=== PATIENT | male | born 1960 | race Caucasian/White ===

== ENCOUNTER 2020-06-09 09:19 | Inpatient (IN) ==
[2020-06-09] MEDS ORDERED: KETOROLAC TROMETHAMINE 15 MG/ML VIAL IV ONE (09:35)
[2020-06-09] MEDS ORDERED: SODIUM CHLORIDE 0.9% 1000ML 2,000 ML IV ONE (09:35)
--- NOTE | 2020-06-09 09:39 | Emergency Department Note ---
Impression & Plan MALIKA (acute kidney injury), Hypokalemia, Right ureteral calculus, Hydronephrosis, right ED Provider Note NAME: CHI CERVANTES AGE: 60 SEX: M : 1960 ARRIVES VIA: Walk-In INFORMANT: Patient ED PROVIDER(S): Heron Cadet DO CHIEF COMPLAINT: right flank pain HPI: Patient is a 60-year-old male with a known 4 mm right proximal ureteral stone that presents to the ER for right flank pain and right belly pain. Symptoms started about a week ago. Pain is sharp and stabbing. Currently a 5 out of 10. Does not want anything for pain. He admits to some nausea but no vomiting. He has been to [facility] 3 times for this. He is frustrated as he cannot get in with urology. He has had 1 previous stone before in the past that was about 5 years ago. Denies any dysuria urgency or frequency. No fevers. No other exacerbating or remitting factors. He just had a CT abdomen pelvis performed yesterday. ROS: See above HPI for pertinent positives & negatives. A total of 10 systems reviewed and were otherwise negative. PAST MEDICAL HISTORY:See Below PAST SURGICAL HISTORY:See Below FAMILY HISTORY:See Below SOCIAL HISTORY:See Below HOME MEDICATIONS:See Below ALLERGIES:See Below VITALS:See Below PHYSICAL EXAMINATION: GENERAL: Sitting up in bed, alert, well appearing, well nourished, no distress, non-toxic EYE EXAM: normal conjunctiva. OROPHARYNX: no exudate, no erythema, lips, buccal mucosa, and tongue normal and mucous membranes are moist NECK: supple, no nuchal rigidity, no adenopathy, non-tender LUNGS: Clear to auscultation. Normal chest wall mechanics HEART: no murmurs, S1 normal and S2 normal ABDOMEN: abdomen soft, mild tenderness in right lower quadrant, normo-active bowel sounds, no masses, no rebound or guarding. UPPER EXTREMITIES: upper extremities are grossly normal. LOWER EXTREMITIES: No pitting edema. NEURO EXAM: Normal sensorium, cranial nerves II-XII grossly intact, normal speech, no gross weakness of arms, no gross weakness of legs. MEDICAL DECISION MAKING: Patient is a 60-year-old male who presents the ER for right flank pain. He has been seen in the ER 3 times prior to this presentation at outside facility. CT yesterday showed a 4 mm stone with a moderate to severe amount of hydro-. There are some fluid going down to the pelvis at that time. IV was established blood work was obtained. Labs show no significant leukocytosis or anemia. BMP with mild hypokalemia. LFTs bilirubin was unremarkable. Lipase was normal. UA was clean. Ultrasound shows a mild amount of hydro-. Patient was given IV fluids. He was given IV Toradol. He was updated bedside. Discussed with urology who recommended admission and discussed with the hospitalist. Patient was Covid positive. Triage Nursing notes reviewed. Limited review of prior medical records performed Vital Signs: reviewed and remarkable for HTN Differential diagnosis: Differential diagnoses includes but is not limited to gastritis, peptic ulcer disease, GERD, gallbladder disease, pancreatitis, small bowel obstruction, acute coronary syndrome, pericarditis, ischemic bowel, irritable bowel disease, irritable bowel syndrome, appendicitis, diverticulitis, malignancy, hernia, urinary tract infection, torsion, [/ectopic (if female)], perforation, trauma, infectious. ER treatment provided: See below Diagnostics interpreted by me: ECG: none Cardiac Monitoring: An order was placed for continuous cardiac monitoring. The monitor shows a rate of 76 with sinus rhythm. Laboratory studies: As stated above and show below. Imaging studies: Ultrasound shows no stone. KUB shows 3 mm stone likely. Consultation(s): Discussed with urology and hospitalist for admission Procedures: none Critical Care: None Past Med/Surg History Medical History (Updated 06/09/20 @ 17:05 by Heron Cadet DO) DM type 2 (diabetes mellitus, type 2) MAURA (generalized anxiety disorder) HLD (hyperlipidemia) HTN (hypertension) VALENTINO on CPAP Surgical History History of lithotripsy Family History Brother Hypertension Mother Hypertension Social History Smoking Status: Never smoker Hx Alcohol Use: Yes Alcohol type: beer Hx Substance Use: No Preferred Language: Ivorian Communication Ability: Effective Cement Loader Required: No Beliefs That Will Affect Care: None Current Living Situation: Spouse Other Information That Helps Us Care for You: No Feels Safe at Home: Yes Safety Concerns: Feels Safe At This Time Assistive Devices: CPAP Allergies Allergies Allergy/AdvReac Type Severity Reaction Status Date / Time guaifenesin [From Mucinex] Allergy Intermediate Hives Unverified 06/09/20 10:05 Home Meds Home Medications Medication Instructions Recorded Confirmed atorvastatin 40 mg PO DAILY 06/09/20 06/09/20 citalopram 10 mg PO DAILY 06/09/20 06/09/20 hydrochlorothiazide 12.5 mg PO DAILY 06/09/20 06/09/20 metformin 1,000 mg PO BIDM 06/09/20 06/09/20 olmesartan [Benicar] 40 mg PO DAILY 06/09/20 06/09/20 oxycodone-acetaminophen [Percocet] 1 tab PO Q6H PRN 06/09/20 06/09/20 tamsulosin [Flomax] 0.4 mg PO DAILY 06/09/20 06/09/20 Results & Data (ED) Vital Signs Vital Signs - 24 hr 06/09/20 09:23 06/09/20 10:03 06/09/20 10:08 Temperature 36.5 C Temperature Source Temporal Artery Scan Pulse Rate 76 57 L Pulse Rate from SpO2 Sensor 58 L Respiratory Rate 18 Respiratory Effort / Characteristics Non-Labored Spontaneous Respiratory Depth Normal Blood Pressure 161/87 H 149/74 H Blood Pressure [Left Arm] Blood Pressure Mean 111 99 Blood Pressure Mean [Left Arm] Blood Pressure Position Sitting Blood Pressure Position [Left Arm] Pulse Oximetry 96 94 Oxygen Delivery Method Room Air Room Air Sepsis Recent Fever Within 48 Hours No Sepsis New/Unexplained Change in Mental Status No Sepsis Action Taken by Nursing No Action Required 06/09/20 10:14 06/09/20 10:20 06/09/20 10:30 Temperature Temperature Source Pulse Rate 60 55 L Pulse Rate from SpO2 Sensor 59 L 55 L Respiratory Rate 21 Respiratory Effort / Characteristics Non-Labored Respiratory Depth Normal Blood Pressure 140/72 Blood Pressure [Left Arm] 149/74 H Blood Pressure Mean 94 Blood Pressure Mean [Left Arm] 99 Blood Pressure Position Blood Pressure Position [Left Arm] Sitting Pulse Oximetry 96 94 94 Oxygen Delivery Method Room Air Sepsis Recent Fever Within 48 Hours Sepsis New/Unexplained Change in Mental Status Sepsis Action Taken by Nursing 06/09/20 10:31 06/09/20 11:00 06/09/20 11:01 Temperature Temperature Source Pulse Rate 53 L 55 L 62 Pulse Rate from SpO2 Sensor 53 L 55 L 61 Respiratory Rate Respiratory Effort / Characteristics Respiratory Depth Blood Pressure 136/72 Blood Pressure [Left Arm] Blood Pressure Mean 93 Blood Pressure Mean [Left Arm] Blood Pressure Position Blood Pressure Position [Left Arm] Pulse Oximetry 94 94 94 Oxygen Delivery Method Sepsis Recent Fever Within 48 Hours Sepsis New/Unexplained Change in Mental Status Sepsis Action Taken by Nursing 06/09/20 11:30 06/09/20 11:31 06/09/20 12:00 Temperature Temperature Source Pulse Rate 56 L 56 L 52 L Pulse Rate from SpO2 Sensor 57 L 55 L 53 L Respiratory Rate Respiratory Effort / Characteristics Respiratory Depth Blood Pressure 139/73 141/72 H Blood Pressure [Left Arm] Blood Pressure Mean 95 95 Blood Pressure Mean [Left Arm] Blood Pressure Position Blood Pressure Position [Left Arm] Pulse Oximetry 95 95 94 Oxygen Delivery Method Sepsis Recent Fever Within 48 Hours Sepsis New/Unexplained Change in Mental Status Sepsis Action Taken by Nursing 06/09/20 12:01 06/09/20 12:55 06/09/20 13:00 Temperature Temperature Source Pulse Rate 54 L Pulse Rate from SpO2 Sensor 54 L 64 56 L Respiratory Rate Respiratory Effort / Characteristics Respiratory Depth Blood Pressure 149/72 H 150/80 H Blood Pressure [Left Arm] Blood Pressure Mean 97 103 Blood Pressure Mean [Left Arm] Blood Pressure Position Blood Pressure Position [Left Arm] Pulse Oximetry 94 95 96 Oxygen Delivery Method Room Air Room Air Sepsis Recent Fever Within 48 Hours Sepsis New/Unexplained Change in Mental Status Sepsis Action Taken by Nursing Laboratory Data Result diagrams: 06/09/20 10:03 06/09/20 10:03 Lab Results 06/09/20 06/09/20 06/09/20 Range/Units 10:02 10:03 10:03 WBC 8.99 (4.8-10.8) K/uL RBC 4.14 L (4.7-6.1) M/uL Hgb 12.6 L (14.0-18.0) g/dL Hct 37.0 L (42-52) % MCV 89.4 (80-100) fL MCH 30.4 (25-34) pg MCHC 34.1 (32-36) g/dL RDW Std Deviation 46.2 (36.4-46.3) fL RDW Coeff of Christel 14.2 (11.5-14.5) % Plt Count 200 (130-400) K/uL MPV 11.1 H (7.4-10.4) fL Immature Gran % (Auto) 2.1 % Neut % (Auto) 80.9 % Lymph % (Auto) 8.5 % [place] % (Auto) 7.9 % Eos % (Auto) 0.4 % Baso % (Auto) 0.2 % Neut # (Auto) 7.27 H (1.4-6.5) K/uL Lymph # (Auto) 0.76 L (1.2-3.4) K/uL [place] # (Auto) 0.71 H (0.11-0.59) K/uL Eos # (Auto) 0.04 (0-0.5) K/uL Baso # (Auto) 0.02 (0-0.2) K/uL Immature Gran # (Auto) 0.19 H (0.00-0.02) K/uL PT 11.1 (9.0-12.0) Seconds INR 1.1 (0.9-1.1) Sodium (136-145) mmol/L Potassium (3.5-5.1) mmol/L Chloride (98-107) mmol/L Carbon Dioxide (21-32) mmol/L Anion Gap (3-11) BUN (7-18) mg/dl Creatinine (0.6-1.4) mg/dl Est Cr Clr Drug Dosing ml/min Est GFR ( Amer) Est GFR (Non-Af Amer) BUN/Creatinine Ratio (10-20) Glucose (70-99) mg/dl Calcium (8.5-10.1) mg/dl Magnesium 2.1 (1.8-2.4) mg/dl Total Bilirubin (0.2-1) mg/dl AST (15-37) U/L ALT (12-78) U/L Alkaline Phosphatase (45-117) U/L Total Protein (6.4-8.2) gm/dl Albumin (3.4-5.0) gm/dl Globulin (2.5-4.0) gm/dl Albumin/Globulin Ratio (0.9-2) Lipase (73-393) U/L Urine Color Urine Appearance (Clear) Urine pH (4.5-7.5) Ur Specific [place] (1.000-1.030) Urine Protein (Negative) Urine Glucose (UA) (Negative) Urine Ketones (Negative) Urine Blood (Negative) Urine Nitrite (Negative) Urine Bilirubin (Negative) Urine Urobilinogen (Negative) Ur Leukocyte Esterase (Negative) Urine WBC (Auto) (0-5) /hpf Urine RBC (Auto) (0-4) /hpf U Hyaline Cast (Auto) (0-5) /lpf U Epithel Cells (Auto) (0-5) /lpf Urine Bacteria (Auto) (Negative) COVID-19 Eval Order SARS-CoV-2 (PCR) (Negative) Influenza Type A (PCR) (Neg) Influenza Type B (PCR) (Neg) RSV (RT-PCR) (Neg) 06/09/20 06/09/20 06/09/20 Range/Units 10:03 10:03 12:45 WBC (4.8-10.8) K/uL RBC (4.7-6.1) M/uL Hgb (14.0-18.0) g/dL Hct (42-52) % MCV (80-100) fL MCH (25-34) pg MCHC (32-36) g/dL RDW Std Deviation (36.4-46.3) fL RDW Coeff of Christel (11.5-14.5) % Plt Count (130-400) K/uL MPV (7.4-10.4) fL Immature Gran % (Auto) % Neut % (Auto) % Lymph % (Auto) % [place] % (Auto) % Eos % (Auto) % Baso % (Auto) % Neut # (Auto) (1.4-6.5) K/uL Lymph # (Auto) (1.2-3.4) K/uL [place] # (Auto) (0.11-0.59) K/uL Eos # (Auto) (0-0.5) K/uL Baso # (Auto) (0-0.2) K/uL Immature Gran # (Auto) (0.00-0.02) K/uL PT (9.0-12.0) Seconds INR (0.9-1.1) Sodium 142 (136-145) mmol/L Potassium 3.2 L (3.5-5.1) mmol/L Chloride 109 H (98-107) mmol/L Carbon Dioxide 27 (21-32) mmol/L Anion Gap 7.0 (3-11) BUN 15 (7-18) mg/dl Creatinine 1.52 H (0.6-1.4) mg/dl Est Cr Clr Drug Dosing 64.8 ml/min Est GFR ( Amer) 56.9 Est GFR (Non-Af Amer) 49.1 BUN/Creatinine Ratio 9.9 L (10-20) Glucose 142 H (70-99) mg/dl Calcium 8.3 L (8.5-10.1) mg/dl Magnesium (1.8-2.4) mg/dl Total Bilirubin 1.0 (0.2-1) mg/dl AST 10 L (15-37) U/L ALT 24 (12-78) U/L Alkaline Phosphatase 86 (45-117) U/L Total Protein 6.9 (6.4-8.2) gm/dl Albumin 2.9 L (3.4-5.0) gm/dl Globulin 4.0 (2.5-4.0) gm/dl Albumin/Globulin Ratio 0.7 L (0.9-2) Lipase 57 L (73-393) U/L Urine Color Dark Yellow Urine Appearance Clear (Clear) Urine pH 6.0 (4.5-7.5) Ur Specific [place] 1.038 H (1.000-1.030) Urine Protein 1+ H (Negative) Urine Glucose (UA) Negative (Negative) Urine Ketones Trace H (Negative) Urine Blood Negative (Negative) Urine Nitrite Negative (Negative) Urine Bilirubin Negative (Negative) Urine Urobilinogen Positive H (Negative) Ur Leukocyte Esterase Negative (Negative) Urine WBC (Auto) 1-5 (0-5) /hpf Urine RBC (Auto) 0-4 (0-4) /hpf U Hyaline Cast (Auto) 1-5 (0-5) /lpf U Epithel Cells (Auto) 5-10 H (0-5) /lpf Urine Bacteria (Auto) Negative (Negative) COVID-19 Eval Order [facility]FluRsv at [facility] SARS-CoV-2 (PCR) (Negative) Influenza Type A (PCR) (Neg) Influenza Type B (PCR) (Neg) RSV (RT-PCR) (Neg) 06/09/20 Range/Units 12:45 WBC (4.8-10.8) K/uL RBC (4.7-6.1) M/uL Hgb (14.0-18.0) g/dL Hct (42-52) % MCV (80-100) fL MCH (25-34) pg MCHC (32-36) g/dL RDW Std Deviation (36.4-46.3) fL RDW Coeff of Christel (11.5-14.5) % Plt Count (130-400) K/uL MPV (7.4-10.4) fL Immature Gran % (Auto) % Neut % (Auto) % Lymph % (Auto) % [place] % (Auto) % Eos % (Auto) % Baso % (Auto) % Neut # (Auto) (1.4-6.5) K/uL Lymph # (Auto) (1.2-3.4) K/uL [place] # (Auto) (0.11-0.59) K/uL Eos # (Auto) (0-0.5) K/uL Baso # (Auto) (0-0.2) K/uL Immature Gran # (Auto) (0.00-0.02) K/uL PT (9.0-12.0) Seconds INR (0.9-1.1) Sodium (136-145) mmol/L Potassium (3.5-5.1) mmol/L Chloride (98-107) mmol/L Carbon Dioxide (21-32) mmol/L Anion Gap (3-11) BUN (7-18) mg/dl Creatinine (0.6-1.4) mg/dl Est Cr Clr Drug Dosing ml/min Est GFR ( Amer) Est GFR (Non-Af Amer) BUN/Creatinine Ratio (10-20) Glucose (70-99) mg/dl Calcium (8.5-10.1) mg/dl Magnesium (1.8-2.4) mg/dl Total Bilirubin (0.2-1) mg/dl AST (15-37) U/L ALT (12-78) U/L Alkaline Phosphatase (45-117) U/L Total Protein (6.4-8.2) gm/dl Albumin (3.4-5.0) gm/dl Globulin (2.5-4.0) gm/dl Albumin/Globulin Ratio (0.9-2) Lipase (73-393) U/L Urine Color Urine Appearance (Clear) Urine pH (4.5-7.5) Ur Specific [place] (1.000-1.030) Urine Protein (Negative) Urine Glucose (UA) (Negative) Urine Ketones (Negative) Urine Blood (Negative) Urine Nitrite (Negative) Urine Bilirubin (Negative) Urine Urobilinogen (Negative) Ur Leukocyte Esterase (Negative) Urine WBC (Auto) (0-5) /hpf Urine RBC (Auto) (0-4) /hpf U Hyaline Cast (Auto) (0-5) /lpf U Epithel Cells (Auto) (0-5) /lpf Urine Bacteria (Auto) (Negative) COVID-19 Eval Order SARS-CoV-2 (PCR) POSITIVE A* (Negative) Influenza Type A (PCR) Negative (Neg) Influenza Type B (PCR) Negative (Neg) RSV (RT-PCR) Negative (Neg) Administered Medications Ceftriaxone Sodium 2,000 mg/ (Dextrose) 70 mls @ 140 mls/hr IV Q24H [facility]; Protocol Stop: 06/19/20 15:59 Last Admin: 06/09/20 16:28 Dose: 140 mls/hr Documented by: [id number] Discontinued Medications Sodium Chloride (Nss 1000ml) 2,000 mls @ 999 mls/hr IV .Q2H1M ONE Stop: 06/09/20 11:35 Last Infusion: 06/09/20 12:10 Dose: 0 mls/hr Documented by: [id number] Admin: 06/09/20 10:03 Dose: 999 mls/hr Documented by: [id number] Ketorolac Tromethamine (Ketorolac Tromethamine 15 Mg/Ml Vial) 15 mg IV NOW ONE Stop: 06/09/20 09:36 Last Admin: 06/09/20 10:03 Dose: 15 mg Documented by: [id number] Discharge Plan Visit Data Chief Complaint: Kidney Stone Stated Complaint: KIDNEY STONE, RIGHT SIDE ED Provider: Heron Cadet Discharge Problem: MALIKA (acute kidney injury), Hypokalemia, Right ureteral calculus, Hydronephrosis, right Patient Disposition: Admitted As Inpatient Discharge Instructions Interventions: ED Discharge Assessment Last Done: 06/09/20 14:40
[2020-06-09 10:26] LABS: Basophils # (auto) 0.02 K/uL (0-0.2); Basophils % (auto) 0.2 %; Eosinophils # (auto) 0.04 K/uL (0-0.5); Eosinophils % (auto) 0.4 %; Hemoglobin 12.6 g/dL (14.0-18.0); Immature Granulocytes # (auto) 0.19 K/uL (0.00-0.02); Immature Granulocytes % (auto) 2.1 %; Lymphocytes # (auto) 0.76 K/uL (1.2-3.4); Lymphocytes % (auto) 8.5 %; Mean Corpuscular Hemoglobin 30.4 pg (25-34); Mean Corpuscular Hgb Conc 34.1 g/dL (32-36); Mean Corpuscular Volume 89.4 fL (80-100); Mean Platelet Volume 11.1 fL (7.4-10.4); Monocytes # (auto) 0.71 K/uL (0.11-0.59); Monocytes % (auto) 7.9 %; Neutrophils # (auto) 7.27 K/uL (1.4-6.5); Neutrophils % (auto) 80.9 %; Platelet Count 200 K/uL (130-400); RDW Coefficient of Variation 14.2 % (11.5-14.5); RDW Standard Deviation 46.2 fL (36.4-46.3); Red Blood Count 4.14 M/uL (4.7-6.1); White Blood Count 8.99 K/uL (4.8-10.8)
[2020-06-09 10:45] LABS: Albumin Level 2.9 gm/dl (3.4-5.0); BUN Creatinine Ratio 9.9 (10-20); Calcium 8.3 mg/dl (8.5-10.1); Creatinine Clr Calc Pharmacy 64.8 ml/min; Est GFR (African American) 56.9; Est GFR (Non-African American) 49.1; INR 1.1 (0.9-1.1); Potassium 3.2 mmol/L (3.5-5.1); Prothrombin Time 11.1 Seconds (9.0-12.0)
[2020-06-09 10:46] LABS: Appearance Urine Clear (Clear); Bacteria Urine Automated Negative (Negative); Bilirubin Urine Negative (Negative); Blood Urine Negative (Negative); Color Urine Dark Yellow; Glucose Urine UA Negative (Negative); Ketones Urine Trace (Negative); Leukocyte Esterase Urine Negative (Negative); Nitrite Urine Negative (Negative); Protein Urine 1+ (Negative); RBC Urine Automated 0-4 /hpf (0-4); Specific Gravity Urine 1.038 (1.000-1.030); Urobilinogen Urine Positive (Negative)
[2020-06-09 10:48] LABS: Albumin Globulin Ratio 0.7 (0.9-2); Total Protein 6.9 gm/dl (6.4-8.2)
--- NOTE | 2020-06-09 11:56 | Ultrasound Report ---
RENAL ULTRASOUND CLINICAL HISTORY: Right flank pain. COMPARISON STUDY: None. TECHNIQUE: Sonography of the kidneys and the urinary bladder was performed. FINDINGS: Right kidney measures 12.8 x 6.3 x 6.5 cm and the left measures 12.9 x 6.4 x 6.1 cm. There is mild right hydronephrosis. There is no left hydronephrosis. No ureteral calculi are identified alt april these may be occult by sonography. Several echogenic foci within the right renal sinus measurin g up to 4 mm. These favor renal calculi. Note is made of a 2.4 cm parapelvic cyst superior aspect of the right renal sinus. There is an equivocal 2.4 cm lesion within the cortex of the midpole the left kidney. This is likely artifactual. Left ureteral jet was visualized. A faint right ureteral jet was noted. IMPRESSION: 1. Mild right hydronephrosis. No ureteral calculi identified although these are often occult by sonog clement. Faint right ureteral jet. Normal left ureteral jet. Right-sided nephrolithiasis. 2. Equivocal 2.4 cm left renal lesion. This likely reflects normal renal parenchyma. A renal lesion c ould appear similar although is considered less likely. Comparison with prior outside imaging studies , if available, is recommended. In the absence of prior exams, a nonemergent renal protocol CT is rec ommended as an outpatient. ACT 112: Positive. There are findings on this exam that require communication between the performing entity and the patient following Patient Test Result Information Act ([place] Act 112) guidelines. Electronically signed by: Kvng Padilla M.D. 06/09/2020 11:55 AM
--- NOTE | 2020-06-09 12:58 | XRay Report ---
XR chest 1V portable HISTORY: Respiratory distress. COMPARISON: None. FINDINGS: The cardiac silhouette is mildly enlarged. No pneumothorax. No pleural effusions. Diffuse i nterstitial thickening with hazy airspace opacities within the mid to lower lung zones. This could re present pulmonary edema or an atypical pneumonitis. IMPRESSION: Cardiomegaly with interstitial thickening and hazy airspace opacities within the mid to lower lung zo nasir. This could represent pulmonary edema or an atypical pneumonitis. ACT 112: Negative or not required by law. Electronically signed by: Madhu Dominique M.D. 06/09/2020 12:57 PM
--- NOTE | 2020-06-09 13:03 | XRay Report ---
KUB HISTORY: Follow up study in a patient with history of renal calculi stone on right COMPARISON: Renal ultrasound of same day FINDINGS: Nonobstructive bowel gas pattern. Renal shadows are obscured by bowel gas. Numerous pelvic basin calcifications are present suggestive of probable phleboliths. No renal calculi identified. Th ere is a 3 mm indeterminate radiodensity within the right abdomen level of the L4-L5 disc space. No p neumoperitoneum or pneumatosis. No fracture. IMPRESSION: 1. Indeterminate 3 mm radiodensity along the right lateral margin of the L4-L5 disc space, possibly r epresentative of a ureteral calculus. 2. No renal calculi identified. ACT 112: Negative or not required by law. The above report was generated using voice recognition software. It may contain grammatical, syntax o r spelling errors. Electronically signed by: Magdi Salcedo M.D. 06/09/2020 1:01 PM
--- NOTE | 2020-06-09 13:38 | History & Physical Report ---
Date of Service June 09, 2020 Assessment & Plan (1) Renal calculi: -Admit to [facility] -Patient presenting from home with reports of ongoing right flank and right lower quadrant pain. This is patient's fourth ED visit since 06/03 for these complaints. Please refer to HPI for summary of imaging completed. -Was diagnosed with 4 mm right ureteral stone with associated hydronephrosis on 06/03 at [facility] via CT scan -Renal ultrasound today shows ongoing mild right hydronephrosis -UA does not suggest UTI, patient is afebrile, no leukocytosis. CT ABD/pelvis yesterday could not exclude a superimposed underlying infectious process, therefore will start empiric IV ceftriaxone -IVF, pain control, continue tamsulosin that was previously started earlier in the course -Follow urine and blood cultures -Urology consult, case discussed with GERALD Mcginnis (2) MALIKA (acute kidney injury): -Creatinine 1.5 (up from baseline of 0.8) -Likely prerenal in nature due to acute illness -IVF, follow renal functions, hold olmesartan and HCTZ (3) Hypokalemia: -K+ 3.2 -Replace, follow electrolytes (4) COVID-19: -Tested positive for COVID-19 on 05/29 -Received monoclonal antibody bamlanivimab on 06/03 -Doing well, no oxygen requirement. No further treatment indicated at this time (5) Renal lesion: - Equivocal 2.4 cm left renal lesion noted on renal US today, will need nonemergent renal protocol CT as an outpatient (6) VALENTINO on CPAP: -Continue CPAP as per home settings (7) DM type 2 (diabetes mellitus, type 2): -Hgb A1c 6.2 04/2020 -Hold oral agents and utilize NovoLog per protocol while hospitalized (8) HTN (hypertension): -BP controlled, holding olmesartan and HCTZ in the setting of MALIKA (9) DVT prophylaxis: -SCDs due to possible invasive procedure History of Present Illness Chief Complaint: Right flank and right lower quadrant pain Primary Care Provider: Zeinab Leavitt MD 60-year-old male with PMH DM type II, VALENTINO on CPAP, HTN, and other problems listed below who presents to the ED for evaluation of right flank and right lower quadrant pain. Of note, patient tested positive for COVID-19 on 05/29. He received monoclonal antibody, bamlanivimab, on 06/03. He reports he has been doing well from a COVID-19 symptom standpoint. He states that he had nausea, poor appetite, diarrhea, fatigue that are all resolving. Still has a mild lingering cough. Denies shortness of breath. On 06/03, patient reports he developed right flank pain that was similar to prior kidney stones in the past. He was seen at [facility] ED and had CT scan showing (24 mm exophytic cyst noted off the midpole left kidney. A 4 mm stone is noted at the proximal 3rd of the right ureter with hydroureteronephrosis proximal to the stone. There are multiple nonobstructive subcentimeter stones in the right kidney). He continued to have right flank and right lower quadrant pain and presented to the ED again on 06/05. He then had a renal ultrasound showing (no echogenic obstructive renal calculi, hydronephrosis or perinephric fluid bilaterally. A 6 mm nonobstructing calculus is present within the inferior pole of the right kidney. A small 2 cm cyst is present within the left kidney.) Again due to ongoing symptoms, patient was seen in the ED yesterday and had repeat CT scan showing (1. 4 mm right proximal ureteral stone is not significantly changed in position. Moderate-severe hydronephrosis has increased with marked perinephric fat stranding and non-organized fluid/edema extending caudally in the retroperitoneal space to the pelvis. Associated urothelial enhancement in the right proximal ureter/renal collecting system. Superimposed infectious process is not excluded.). Urology was contacted when patient was in the ED at [facility] and they recommended discharge with outpatient follow-up. Next available appointment was on 06/23. Patient was given Percocet to take at home. He reports that it does improve his pain however he is frustrated with ongoing symptoms. He then presented to [facility] ED today for further evaluation. Patient reports having a fever of 103 closer to the time of his diagnosis of COVID-19. Reports temperature of 99 today. Appetite is improving, denies nausea, vomiting, diarrhea. No chest pain. Denies lightheadedness, dizziness, diaphoresis, syncopal events. Urinating without difficulty, denies hematuria and dysuria. In the ED today, renal ultrasound shows mild hydronephrosis. Labs show creatinine 1.5 (up from baseline of 0.8). UA does not suggest UTI, patient is afebrile without leukocytosis. He was given IVF and IV ketorolac. Allergies Allergy/AdvReac Type Severity Reaction Status Date / Time guaifenesin [From Mucinex] Allergy Intermediate Hives Unverified 06/09/20 10:05 Home Medications Medication Instructions Recorded Confirmed Type atorvastatin 40 mg PO DAILY 06/09/20 06/09/20 History citalopram 10 mg PO DAILY 06/09/20 06/09/20 History hydrochlorothiazide 12.5 mg PO DAILY 06/09/20 06/09/20 History metformin 1,000 mg PO BIDM 06/09/20 06/09/20 History olmesartan [Benicar] 40 mg PO DAILY 06/09/20 06/09/20 History oxycodone-acetaminophen [Percocet] 1 tab PO Q6H PRN 06/09/20 06/09/20 History tamsulosin [Flomax] 0.4 mg PO DAILY 06/09/20 06/09/20 History Past Med/Surg History Medical History (Updated 06/09/20 @ 17:05 by Heron Cadet DO) DM type 2 (diabetes mellitus, type 2) MAURA (generalized anxiety disorder) HLD (hyperlipidemia) HTN (hypertension) VALENTINO on CPAP Surgical History History of lithotripsy Family History Brother Hypertension Mother Hypertension Social History Smoking Status: Never smoker Hx Alcohol Use: Yes Alcohol type: beer Hx Substance Use: No Preferred Language: Gambian Communication Ability: Effective Principal Statistical Scientist Required: No Beliefs That Will Affect Care: None Current Living Situation: Spouse Other Information That Helps Us Care for You: No Feels Safe at Home: Yes Safety Concerns: Feels Safe At This Time Assistive Devices: CPAP Review of Systems Review of Systems: ROS per HPI, all other systems reviewed and negative Physical Exam Constitutional: WD/WN, vitals as above + obese Eyes: PERRL, conjunctivae normal, anicteric sclerae ENMT: external ear and nose normal, oropharynx normal Respiratory: normal respiratory effort; no respiratory distress Auscultation: + diminished lung sounds Cardiovascular: Rate/Rhythm: regular rate and regular rhythm Vessels: normal peripheral pulses Extremities: no edema Gastrointestinal (Abdomen): Inspection/Auscultation: normal bowel sounds Percussion/Palpation: + abdomen tender (RLQ) and abdomen soft; no hepatosplenomegaly Musculoskeletal: no cyanosis or clubbing, extremities motor strength 5/5 Skin: no rashes, warm and dry Neurologic: PERRL, EOMI, accommodation nl, no face palsy, no dysarthria Psychiatric: A+Ox3, euthymic affect Genitourinary: no CVA tenderness Results & Data Results & Data ([facility]) Vital Signs (Past 12 Hours) Vital Signs Temp Pulse Resp BP BP Pulse Ox 06/09/20 13:00 150/80 H 96 06/09/20 12:55 149/72 H 95 06/09/20 12:01 54 L 94 06/09/20 12:00 52 L 141/72 H 94 06/09/20 11:31 56 L 95 06/09/20 11:30 56 L 139/73 95 06/09/20 11:01 62 94 06/09/20 11:00 55 L 136/72 94 06/09/20 10:31 53 L 94 06/09/20 10:30 55 L 140/72 94 06/09/20 10:20 60 94 06/09/20 10:14 21 149/74 H 96 06/09/20 10:08 57 L 149/74 H 94 06/09/20 09:23 36.5 C 76 18 161/87 H 96 Laboratory Results Short CBC 06/09/20 Range/Units 10:03 WBC 8.99 (4.8-10.8) K/uL Hgb 12.6 L (14.0-18.0) g/dL Hct 37.0 L (42-52) % Plt Count 200 (130-400) K/uL BMP 06/09/20 10:03 Sodium 142 Potassium 3.2 L Chloride 109 H Carbon Dioxide 27 BUN 15 Creatinine 1.52 H Glucose 142 H Calcium 8.3 L Liver Function 06/09/20 Range/Units 10:03 Total Bilirubin 1.0 (0.2-1) mg/dl AST 10 L (15-37) U/L ALT 24 (12-78) U/L Alkaline Phosphatase 86 (45-117) U/L Albumin 2.9 L (3.4-5.0) gm/dl Urine 06/09/20 Range/Units 10:03 Urine Color Dark Yellow Urine Appearance Clear (Clear) Urine pH 6.0 (4.5-7.5) Ur Specific [place] 1.038 H (1.000-1.030) Urine Protein 1+ H (Negative) Urine Glucose (UA) Negative (Negative) Diagnostic Findings RENAL ULTRASOUND IMPRESSION: 1. Mild right hydronephrosis. No ureteral calculi identified although these are often occult by sonography. Faint right ureteral jet. Normal left ureteral jet. Right-sided nephrolithiasis. 2. Equivocal 2.4 cm left renal lesion. This likely reflects normal renal parenchyma. A renal lesion could appear similar although is considered less likely. Comparison with prior outside imaging studies, if available, is recommended. In the absence of prior exams, a nonemergent renal protocol CT is recommended as an outpatient. CXR IMPRESSION: Cardiomegaly with interstitial thickening and hazy airspace opacities within the mid to lower lung zones. This could represent pulmonary edema or an atypical pneumonitis. KUB XR IMPRESSION: 1. Indeterminate 3 mm radiodensity along the right lateral margin of the L4-L5 disc space, possibly career services representative of a ureteral calculus. 2. No renal calculi identified. Code Status & VTE Plan VTE Prophylaxis Plan VTE Prophylaxis will be ordered: Yes Supervising Physician Co-Signing Physician Notes Attending addendum: The patient was seen and examined in medical floor He was admitted with the aright ureteral calculus with associated hydronephrosis and MALIKA His pain seems to be controlled and denies any respiratory symptoms On examination No apparent distress at rest Remains hemodynamically stable and afebrile Chest-clear to auscultate bilaterally Heart-S1-S2, regular Abdomen-distended, soft, tender in the right renal angle, bowel sounds present Extremities-negative for any edema 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 No focal sensory and motor deficit appreciated Admission labs and imaging studies reviewed Has right ureteral calculus with right hydronephrosis and MALIKA Noted to have Covid 19+ but has been on isolation at home more than 10 days for positive COVID-19 infection Agree with assessment and plan as outlined above by Michelle Howard
[2020-06-09 14:01] LABS: Influenza A virus by PCR Negative (Neg); Influenza B virus by PCR Negative (Neg); RSV by PCR Negative (Neg)
[2020-06-09 14:19] LABS: SARS CoV2 RNA(COVID-19) InHosp POSITIVE (Negative)
--- NOTE | 2020-06-09 14:20 | Urology Consultation ---
Date of Consultation June 09, 2020 Assessment & Plan (1) Right ureteral calculus: (2) Hydronephrosis, right: (3) MALIKA (acute kidney injury): 60yo M admitted with intractable right flank pain and MALIKA secondary to a right ureteral calculus with associated hydronephrosis -Afebrile, VSS. -Labs reviewed - Wbc normal and creatinine up to 1.52. -Urinalysis not suggestive of infection -Renal ultrasound notable for mild right hydronephrosis and a 2.4 cm left renal lesion -KUB notes an indeterminate 3 mm radiodensity, possibly representing a right ureteral calculus. -Case discussed with Dr. Hurt -No acute intervention planned for today -Plan for trial of passage overnight -Will make NPO at midnight and plan to reassess in the AM for possible procedure -Strain all urine -Continue supportive care, flomax, and antibiotics per primary team -Recommend obtaining records and CT imaging from [facility] for further review -Will continue to follow -Please consult our service urgently if patient develops fever >101F, intractable pain or nausea, as this will necessitate urgent surgical intervention. History of Present Illness History of Present Illness The patient is a 60-year-old male with a PMHx including DM2, VALENTINO, and HTN who presented to [facility] ER today with c/o right flank and RLQ pain for one week. This is the patient's fourth ER visit since 06/03 for these complaints. He was evaluated at [facility] on 06/03 and was diagnosed with a 4mm right ureteral stone with hydronephrosis. Outside imaging results obtained through chart review: -On 06/03, patient reports he developed right flank pain that was similar to prior kidney stones in the past. He was seen at [facility] ED and had CT scan showing a 24 mm exophytic cyst noted off the midpole left kidney. A 4 mm stone is noted at the proximal 3rd of the right ureter with hydroureteronephrosis proximal to the stone. There are multiple nonobstructive subcentimeter stones in the right kidney. There are multiple nonobstructive subcentimeter stones in the right kidney. -He continued to have right flank and right lower quadrant pain and presented to the ED again on 06/05. He then had a renal ultrasound showing no echogenic obstructive renal calculi, hydronephrosis or perinephric fluid bilaterally. A 6 mm nonobstructing calculus is present within the inferior pole of the right kidney. A small 2 cm cyst is present within the left kidney. -Again due to ongoing symptoms, patient was seen in the ED yesterday at [facility] and had repeat CT scan showing a 4 mm right proximal ureteral stone is not significantly changed in position. Moderate-severe hydronephrosis has increased with marked perinephric fat stranding and non- organized fluid/edema extending caudally in the retroperitoneal space to the pelvis. Associated urothelial enhancement in the right proximal ureter/renal collecting system. Superimposed infectious process is not excluded. On presentation today, he was afebrile, Wbc 8.99, Hgb 12.6, Creatinine 1.52. Urinalysis not suggestive of infection. Renal ultrasound impression: 1. Mild right hydronephrosis. No ureteral calculi identified although these are often occult by sonography. Faint right ureteral jet. Normal left ureteral jet. Right-sided nephrolithiasis. 2. Equivocal 2.4 cm left renal lesion. This likely reflects normal renal parenchyma. A renal lesion could appear similar although is considered less likely. Comparison with prior outside imaging studies, if available, is recommended. In the absence of prior exams, a nonemergent renal protocol CT is recommended as an outpatient. KUB impression: 1. Indeterminate 3 mm radiodensity along the right lateral margin of the L4-L5 disc space, possibly commissary representative of a ureteral calculus. 2. No renal calculi identified. Of note, patient tested positive for COVID-19 on 05/29. He received monoclonal antibody, bamlanivimab, on 06/03. Patient examined at bedside this afternoon. Awake, sitting in chair on arrival. At present, he reports an improvement in pain with the IV Ketoralac given in ER. He reports feeling frustrated with the lack of improvement in his symptoms over the past week. Denies hematuria/dysuria. Denies fevers or chills. No nausea or vomiting. Voiding without difficulty. Feels his stream is slightly slower than normal. Denies any difficulty with emptying his bladder. Denies CP/SOB. Denies dizziness. He reports a hx of stones requiring surgical intervention approximately 5 years ago. On IV Ceftriaxone. Continues on Flomax. Has been NPO since approx 7am. No additional complaints at this time. Allergies Allergy/AdvReac Type Severity Reaction Status Date / Time guaifenesin [From Mucinex] Allergy Intermediate Hives Unverified 06/09/20 10:05 Home Medications Medication Instructions Recorded Confirmed Type atorvastatin 40 mg PO DAILY 06/09/20 06/09/20 History citalopram 10 mg PO DAILY 06/09/20 06/09/20 History hydrochlorothiazide 12.5 mg PO DAILY 06/09/20 06/09/20 History metformin 1,000 mg PO BIDM 06/09/20 06/09/20 History olmesartan [Benicar] 40 mg PO DAILY 06/09/20 06/09/20 History oxycodone-acetaminophen [Percocet] 1 tab PO Q6H PRN 06/09/20 06/09/20 History tamsulosin [Flomax] 0.4 mg PO DAILY 06/09/20 06/09/20 History Patient History Medical History (Updated 06/09/20 @ 17:05 by Heron Cadet DO) DM type 2 (diabetes mellitus, type 2) MAURA (generalized anxiety disorder) HLD (hyperlipidemia) HTN (hypertension) VALENTINO on CPAP Surgical History History of lithotripsy Family History Brother Hypertension Mother Hypertension Social History Smoking Status: Never smoker Hx Alcohol Use: Yes Alcohol type: beer Hx Substance Use: No Preferred Language: Maldivian Communication Ability: Effective Belt Worker Required: No Beliefs That Will Affect Care: None Current Living Situation: Spouse Other Information That Helps Us Care for You: No Feels Safe at Home: Yes Safety Concerns: Feels Safe At This Time Assistive Devices: None Review of Systems Review of Systems: All systems reviewed & are unremarkable except as noted in HPI & below Physical Exam Constitutional: well developed and well nourished; no acute distress and not ill appearing Respiratory: normal respiratory effort and able to speak in complete sentences Cardiovascular: Extremities: no calf tenderness Gastrointestinal (Abdomen): Inspection/Auscultation: abdomen normal to inspection; abdomen not distended Musculoskeletal: Head/Neck/Chest: normocephalic Skin: No visible rashes or lesions Neurologic: moves all extremities and awake; not confused Psychiatric: A+Ox3, euthymic affect Results & Data ([facility]) Vital Signs (Past 12 Hours) Vital Signs Temp Pulse Resp BP BP Pulse Ox 06/09/20 13:00 150/80 H 96 06/09/20 12:55 149/72 H 95 06/09/20 12:01 54 L 94 06/09/20 12:00 52 L 141/72 H 94 06/09/20 11:31 56 L 95 06/09/20 11:30 56 L 139/73 95 06/09/20 11:01 62 94 06/09/20 11:00 55 L 136/72 94 06/09/20 10:31 53 L 94 06/09/20 10:30 55 L 140/72 94 06/09/20 10:20 60 94 06/09/20 10:14 21 149/74 H 96 06/09/20 10:08 57 L 149/74 H 94 06/09/20 09:23 36.5 C 76 18 161/87 H 96 PG Care Time/CCT Total # of Minutes Spent Total Time Spent with Patient: Total time spent is greater than 50% in coordination of care (as documented) at patient's floor/unit and/or counseling patient: Coding Level of Care Code 49926 Inpt Consult Level 4 Diagnoses Right ureteral calculus N20.1 Hydronephrosis, right N13.30 MALIKA (acute kidney injury) N17.9
[2020-06-09] MEDS ORDERED: POTASSIUM CHLORIDE CRTAB 20 MEQ TABCR PO STA (14:52)
[2020-06-09] MEDS ORDERED: CARBOHYDRATES FOR HYPOGLYCEMIA PO PRN (14:52)
[2020-06-09] MEDS ORDERED: GLUCOSE 40% GEL 15 GM TUBE PO PRN (14:52)
[2020-06-09] MEDS ORDERED: GLUCAGON FOR INJ 1 MG VIAL SQ PRN (14:52)
[2020-06-09] MEDS ORDERED: ACETAMINOPHEN 325 MG TAB PO PRN (14:52)
[2020-06-09] MEDS ORDERED: MoRPHine SULFATE 4 MG/ML 1 ML CARP\\VIAL IV PRN (14:52)
[2020-06-09] MEDS ORDERED: DEXTROSE 50% 50 ML SYRINGE IV PRN (14:52)
[2020-06-09] MEDS ORDERED: GLUCOSE 10 TABS/TUBE PO PRN (14:52)
[2020-06-09] MEDS: cefTRIAXone SODIUM 2,000 MG in DEXTROSE 5% 50 ML IV SCH (16:28)
[2020-06-09] MEDS ORDERED: COUGH DROP (SUGAR FREE) LOZ 24 LOZ/1 BOX BUCCAL ONE (17:16)
[2020-06-09] MEDS: SODIUM CHLORIDE 0.9% 1000ML 1,000 ML IV SCH (17:58)
[2020-06-09] MEDS: INSULIN ASPART 100 UNITS/ML 3 ML PEN SC SCH ×2 (17:59→20:48)
[2020-06-10] MEDS ORDERED: Nursing to Pharmacy Communication SCH ×2 (02:00→18:45)
[2020-06-10] MEDS: SODIUM CHLORIDE 0.9% 1000ML 1,000 ML IV SCH ×3 (02:15→20:10)
[2020-06-10 06:16] LABS: Hematocrit (blood only) 33.7 % (42-52); Hemoglobin 11.8 g/dL (14.0-18.0); Mean Corpuscular Hemoglobin 31.1 pg (25-34); Mean Corpuscular Volume 88.9 fL (80-100); Mean Platelet Volume 11.3 fL (7.4-10.4); Platelet Count 234 K/uL (130-400); RDW Coefficient of Variation 14.2 % (11.5-14.5); RDW Standard Deviation 46.6 fL (36.4-46.3); Red Blood Count 3.79 M/uL (4.7-6.1); White Blood Count 7.67 K/uL (4.8-10.8)
[2020-06-10] MEDS: INSULIN ASPART 100 UNITS/ML 3 ML PEN SC SCH ×4 (06:29→20:50)
[2020-06-10 06:42] LABS: BUN Creatinine Ratio 13.1 (10-20); Calcium 7.8 mg/dl (8.5-10.1); Est GFR (African American) 65.1; Est GFR (Non-African American) 56.2; Potassium 3.5 mmol/L (3.5-5.1)
[2020-06-10] MEDS ORDERED: DEXAMETHASONE SOD INJ 4 MG/ML VIAL ONE (12:39)
[2020-06-10] MEDS ORDERED: ONDANSETRON INJ 2 MG/ML 2 ML VIAL ONE (12:39)
[2020-06-10] MEDS ORDERED: MIDAZOLAM HCL 1 MG/ML 2ML VIAL ONE (12:39)
[2020-06-10] MEDS ORDERED: PROPOFOL IV EMULSION 10 MG/ML 20 ML VIAL IV ONE ×2 (12:39→14:09)
[2020-06-10] MEDS ORDERED: LIDOCAINE HCL 2% 2 ML VIAL/AMP(20MG/ML) INFIL ONE (12:39)
[2020-06-10] MEDS ORDERED: fentaNYL citrate 100 MCG/2 ML VIAL ONE (12:39)
--- NOTE | 2020-06-10 14:47 | Anesthesiology Consultation ---
Date of Service June 10, 2020 Assessment & Plan (1) Encounter for pre-operative examination: Chart Review Chart Review: Acceptable Risk for Surgery and Patient NOT seen in Pre Admission Testing Consults Requested none History Surgery Operation Date: 06/10/20 07:00 Proposed Procedures p Cystoscopy, Right Stent Placement, Possible Ureteroscopy, Laser Lithotripsy, Stone Treatment - Landon Heredia MD Height/Weight Height: 5 ft 10 in Weight: 114 kg Allergies Allergy/AdvReac Type Severity Reaction Status Date / Time guaifenesin [From Mucinex] Allergy Intermediate Hives Unverified 06/09/20 10:05 Medications Home Medications Medication Instructions Recorded Confirmed Last Taken atorvastatin 40 mg PO DAILY 06/09/20 06/09/20 Unknown citalopram 10 mg PO DAILY 06/09/20 06/09/20 06/08/20 hydrochlorothiazide 12.5 mg PO DAILY 06/09/20 06/09/20 06/08/20 metformin 1,000 mg PO BIDM 06/09/20 06/09/20 06/08/20 olmesartan [Benicar] 40 mg PO DAILY 06/09/20 06/09/20 06/08/20 oxycodone-acetaminophen [Percocet] 1 tab PO Q6H PRN 06/09/20 06/09/20 Unknown tamsulosin [Flomax] 0.4 mg PO DAILY 06/09/20 06/09/20 06/08/20 Active Medications Generic Name Dose Route Start Last Admin Trade Name Freq PRN Reason Stop Dose Admin Ceftriaxone Sodium 2,000 mg/ 70 mls @ 140 mls/hr 06/09/20 16:00 06/09/20 17:00 Dextrose IV 06/19/20 15:59 Infused Q24H SO Infusion Protocol Sodium Chloride 1,000 mls @ 100 mls/hr 06/09/20 14:52 06/10/20 10:09 Nss 1000ml IV 07/09/20 14:51 100 mls/hr .Q10H SO Administration Insulin Aspart 0 units 06/10/20 06:00 06/10/20 11:45 Insulin Aspart 100 Units/Ml 3 Ml Pen SC 07/10/20 05:59 Not Given Q6 SO NPO Date Last Intake of Fluids: 06/09/20 Time Last Intake of Fluids: 23:15 Date Last Intake of Solids: 06/09/20 Past Medical History Medical History DM type 2 (diabetes mellitus, type 2) MAURA (generalized anxiety disorder) HLD (hyperlipidemia) HTN (hypertension) VALENTION on CPAP Past Family History Family History Brother Hypertension Mother Hypertension Past Surgical History Surgical History History of lithotripsy Social History Smoking Status: Never smoker Hx Alcohol Use: Yes Alcohol type: beer alcohol intake frequency: holidays/special occasions only Hx Substance Use: No Physical Exam Vital Signs Last Vital Signs Temp 36.9 C 06/10/20 07:32 Pulse 57 L 06/10/20 07:32 Resp 18 06/10/20 07:32 BP 174/85 H 06/10/20 07:32 Pulse Ox 93 06/10/20 07:32 Testing Laboratory Results 06/10/20 05:27 06/10/20 05:27 PT 11.1 Seconds (9.0-12.0) 06/09/20 10:03 INR 1.1 (0.9-1.1) 06/09/20 10:03 Urine Color Dark Yellow 06/09/20 10:03 Urine Appearance Clear (Clear) 06/09/20 10:03 Urine pH 6.0 (4.5-7.5) 06/09/20 10:03 Ur Specific [place] 1.038 (1.000-1.030) H 06/09/20 10:03 Urine Protein 1+ (Negative) H 06/09/20 10:03 Urine Glucose (UA) Negative (Negative) 06/09/20 10:03 Urine Ketones Trace (Negative) H 06/09/20 10:03 Urine Nitrite Negative (Negative) 06/09/20 10:03 Ur Leukocyte Esterase Negative (Negative) 06/09/20 10:03 Urine WBC (Auto) 1-5 /hpf (0-5) 06/09/20 10:03 Urine RBC (Auto) 0-4 /hpf (0-4) 06/09/20 10:03 U Hyaline Cast (Auto) 1-5 /lpf (0-5) 06/09/20 10:03 U Epithel Cells (Auto) 5-10 /lpf (0-5) H 06/09/20 10:03 Urine Bacteria (Auto) Negative (Negative) 06/09/20 10:03 06/10/20 06/10/20 06/10/20 11:40 07:23 06:08 POC Glucose 86 105 H 99 Chest X-Ray Date: 06/09/20 IMPRESSION: Cardiomegaly with interstitial thickening and hazy airspace opacities within the mid to lower lung zones. This could represent pulmonary edema or an atypical pneumonitis.
--- NOTE | 2020-06-10 15:33 | Urology Progress Note ---
Date of Service June 10, 2020 Assessment & Plan (1) Right ureteral calculus: plan for cysto, right ureteroscopy, laser litho, and stent placement today - risks, benefits, and expectations reviewed - consent on the chart Admission and Anticipated Discharge Date Admission Date: June 09, 2020 Subjective right ureteral stone still symptomatic plan for surgery today Physical Exam Constitutional: well developed and well nourished Neck: neck nontender Respiratory: normal respiratory effort; no respiratory distress and does not use accessory muscles Cardiovascular: Rate/Rhythm: regular rate Vessels: radial pulses present Extremities: no edema Gastrointestinal (Abdomen): Inspection/Auscultation: abdomen normal to inspection Percussion/Palpation: abdomen soft; abdomen nontender and no guarding Musculoskeletal: Head/Neck/Chest: normocephalic and head atraumatic Extremities: extremities normal to inspection Skin: no rashes and no lesions Trauma: no evidence of skin trauma Neurologic: awake; not obtunded Speech / Cognition: normal speech Motor/Sensory: no tremor Psychiatric: Orientation: alert and oriented x 3 Genitourinary: no CVA tenderness Lymphatic: no lymphadenopathy Results & Data ([facility]) Vital Signs (Past 12 Hours) Vital Signs Temp Pulse Resp BP Pulse Ox 06/10/20 15:28 36.7 C 50 L 18 164/96 H 97 06/10/20 07:32 36.9 C 57 L 18 174/85 H 93 PG Care Time/CCT Total # of Minutes Spent Total Time Spent with Patient: Total time spent is greater than 50% in coordination of care (as documented) at patient's floor/unit and/or counseling patient: Coding Level of Care Code 94471 Subseq Hosp Care Lvl 2 Diagnoses Right ureteral calculus N20.1
--- NOTE | 2020-06-10 16:34 | Hospitalist Progress Note ---
Date of Service June 10, 2020 Assessment & Plan (1) Renal calculi: -Patient presenting from home with reports of ongoing right flank and right lower quadrant pain. This is patient's fourth ED visit since 06/03 for these complaints. Please refer to HPI for summary of imaging completed. -Was diagnosed with 4 mm right ureteral stone with associated hydronephrosis on 06/03 at [facility] via CT scan -Renal ultrasound today shows ongoing mild right hydronephrosis -UA does not suggest UTI, patient is afebrile, no leukocytosis. CT ABD/pelvis yesterday could not exclude a superimposed underlying infectious process, therefore will start empiric IV ceftriaxone -IVF, pain control, continue tamsulosin that was previously started earlier in the course -Follow urine and blood cultures -Urology consult, case discussed with GERALD Mcginnis -Pain is much better and denies any other significant symptoms -Awaiting to go for cystoscopy evaluation today (2) MALIKA (acute kidney injury): -Creatinine 1.5 (up from baseline of 0.8) -Likely prerenal in nature due to acute illness -IVF, follow renal functions, hold olmesartan and HCTZ -Creatinine has been normalized (3) Hypokalemia: -K+ 3.2 -Replace, follow electrolytes -K is at 3.5 today (4) COVID-19: -Tested positive for COVID-19 on 05/29 -Received monoclonal antibody bamlanivimab on 06/03 -Doing well, no oxygen requirement. No further treatment indicated at this time -No more isolation and does not have any symptoms of Covid (5) Renal lesion: - Equivocal 2.4 cm left renal lesion noted on renal US today, will need nonemergent renal protocol CT as an outpatient (6) VALENTINO on CPAP: -Continue CPAP as per home settings (7) DM type 2 (diabetes mellitus, type 2): -Hgb A1c 6.2 04/2020 -Hold oral agents and utilize NovoLog per protocol while hospitalized (8) HTN (hypertension): -BP controlled, holding olmesartan and HCTZ in the setting of MALIKA (9) DVT prophylaxis: -SCDs due to possible invasive procedure Admission and Anticipated Discharge Date Admission Date: June 09, 2020 Subjective 06/10/2020 The patient was seen and examined in medical floor His pain is much better and denies any shortness of breath though does have minimal cough No fever and/or chills Review of Systems Review of Systems: All systems reviewed and are unremarkable except as noted below Genitourinary: + flank pain (Right flank pain); no dysuria, no urinary hesitancy and no hematuria Results & Data Results & Data ([facility]) Vital Signs (Past 12 Hours) Vital Signs Temp Pulse Resp BP Pulse Ox 06/10/20 15:55 37.9 C H 52 L 18 165/79 H 96 06/10/20 15:28 36.7 C 50 L 18 164/96 H 97 06/10/20 07:32 36.9 C 57 L 18 174/85 H 93 Laboratory Results Short CBC 06/10/20 Range/Units 05:27 WBC 7.67 (4.8-10.8) K/uL Hgb 11.8 L (14.0-18.0) g/dL Hct 33.7 L (42-52) % Plt Count 234 (130-400) K/uL BMP 06/10/20 05:27 Sodium 144 Potassium 3.5 Chloride 113 H Carbon Dioxide 25 BUN 18 Creatinine 1.36 Glucose 96 Calcium 7.8 L Medications Administered Current Inpatient Medications Acetaminophen (Acetaminophen 325 Mg Tab) 650 mg PO Q4H PRN PRN Reason: pain/fever Stop: 07/09/20 14:51 Atorvastatin Calcium (Atorvastatin 40 Mg Tab) 40 mg PO DAILY SO Stop: 07/10/20 08:59 Citalopram Hydrobromide (Citalopram 20 Mg Tab) 10 mg PO DAILY SO Stop: 07/10/20 08:59 Dextrose (Dextrose 50% 50 Ml Syringe) 25 - 50 ml IV UD PRN; Protocol PRN Reason: Hypoglycemia Protocol Stop: 07/09/20 14:51 Glucagon (Glucagon For Inj 1 Mg Vial) 1 mg SQ UD PRN; Protocol PRN Reason: Hypoglycemia Protocol Stop: 07/09/20 14:51 Glucose (Glucose 10 Tabs/Tube) 4 - 8 tabs PO UD PRN; Protocol PRN Reason: Hypoglycemia Protocol Stop: 07/09/20 14:51 Glucose (Glucose 40% Gel 15 Gm Tube) 15 - 30 gm PO UD PRN; Protocol PRN Reason: Hypoglycemia Protocol Stop: 07/09/20 14:51 Ceftriaxone Sodium 2,000 mg/ (Dextrose) 70 mls @ 140 mls/hr IV Q24H SO; Protocol Stop: 06/19/20 15:59 Last Infusion: 06/09/20 17:00 Dose: Infused Documented by: Sodium Chloride (Nss 1000ml) 1,000 mls @ 100 mls/hr IV .Q10H [facility] Stop: 07/09/20 14:51 Last Admin: 06/10/20 10:09 Dose: 100 mls/hr Documented by: Insulin Aspart (Insulin Aspart 100 Units/Ml 3 Ml Pen) 0 units SC Q6 SO Stop: 07/10/20 05:59 Last Admin: 06/10/20 11:45 Dose: Not Given Documented by: Miscellaneous (Carbohydrates For Hypoglycemia ) 15 - 30 gm PO UD PRN PRN Reason: Hypoglycemia Protocol Stop: 07/09/20 14:51 Morphine Sulfate (Morphine Sulfate 4 Mg/Ml 1 Ml Carp\Vial) 4 mg IV Q4H PRN PRN Reason: Pain Stop: 06/23/20 14:51 Tamsulosin HCl (Tamsulosin Hcl 0.4 Mg Cap) 0.4 mg PO DAILY [facility] Stop: 07/10/20 08:59
--- NOTE | 2020-06-10 17:12 | Operative Report ---
PG Post Operative Report Pre & Post Diagnosis Operation Date: 06/10/20 07:00 Pre-Op Diagnosis: Ureteral Calculus Post-Op Diagnosis: Ureteral Calculus I identified the patient and participated in the time-out.: Yes Procedure Operation Date: 06/10/20 07:00 Actual Procedures p Cystoscopy, Right Stent Placement, Right Ureteroscopy, Laser Lithotripsy, Sto ne Treatment(Right) - Landon Heredia MD Surgeon Navneet Heredia MD Metal Stamping Machine Operator none Estimated Blood Loss 0 Findings Consistent with Post-Op Diagnosis Specimens none Description of Procedure The patient was identified in the preoperative holding area, appropriate informed consents were reviewed and completed and the patient was transferred to the operative suite. Upon arrival, appropriate antibiotics and anesthesia were administered and the patient was placed in dorsal lithotomy position and prepped and draped in sterile fashion. To begin the case I passed a 22 Ukrainian cystoscope. Of note he was somewhat tight at the urethral meatus/fossa navicularis but I was able to navigate this with the scope atraumatically. Inspection of the remainder of the urethra was unremarkable. He has relatively enlarged prostate with a high bladder neck. I was able to navigate above this and inspect the bladder. The bladder was healthy in appearance with clear urine from both kidneys and healthy-appearing mucosa. I then turned my attention to the right ureteral orifice which was cannulated with a sensor wire and a 10 Ukrainian double-lumen catheter. After advancing one wire to the kidney I did opacify the collecting system with contrast. This retrograde pyelogram revealed relatively uniform caliber of the ureter without a clear transition point indicating a stone. Stones were not readily visible on pre-contrast fluoroscopy. I then advanced a second wire through the double- lumen catheter before removing it. I elected to start with a semirigid scope and I passed a semirigid scope into the distal ureter and advanced it to the maximal extent allowable. I did not encounter any stones during the inspection of the distal ureter. There also was no stricturing or trauma to the ureter. I withdrew the scope and advanced a flexible ureteroscope. Advanced to the kidney without difficulty. I then performed a full renoscopy identifying no stones wit hin the kidney. On exit ureteroscopy, and the level of the mid ureter I encountered a stone that was mildly impacted into the wall of the ureter. There was some pericalculus inflammation, the remainder of the ureter was healthy in appearance. Utilizing 270 m laser fiber I fragmented the stone into numerous small pieces, the majority of which I was able to irrigate down the ureter. The site of impaction was healthy in appearance and passing a scope through this area I had no resistance. I concluded the case by placing a 6 Ukrainian by 26 cm looped ureteral stent. There was good positioning within the kidney as well as the bladder. A string was left attached to the distal aspect of the stent. I would like to leave it in place for 24 to 48 hours. He was subsequently extubated and taken to the recovery room in stable condition. There were no complications. I attest to the content of the Intraoperative Record and any orders documented therein. Any exceptions are noted below.
[2020-06-10] MEDS ORDERED: ONDANSETRON INJ 2 MG/ML 2 ML VIAL IV PRN (17:16)
[2020-06-10] MEDS ORDERED: ePHEDrine sulfate 50 MG/ML AMP IV PRN (17:16)
[2020-06-10] MEDS ORDERED: ATROPINE SULFATE 0.1 MG/ML 10 ML SYR IV PRN (17:16)
[2020-06-10] MEDS ORDERED: fentaNYL citrate 100 MCG/2 ML VIAL IV PRN (17:16)
--- NOTE | 2020-06-10 17:18 | Fluoroscopy Report ---
FL retrograde includes kub CLINICAL HISTORY: CYSTO. Stent placement. COMPARISON STUDY: KUB 06/09/2020. FLUOROSCOPY TIME: 21 seconds. FINDINGS: 6 fluoroscopic spot images of the abdomen and pelvis were submitted. There is retrograde op acification of the right renal collecting system/ureter followed by placement of a right ureteral marsha nt. The ureteral stent appears in good position. IMPRESSION: Fluoroscopy provided for right ureteral stent placement. ACT 112: Negative or not required by law. Electronically signed by: Madhu Dominique M.D. 06/10/2020 5:17 PM
--- NOTE | 2020-06-10 17:54 | Anesthesiology Progress Note ---
Date of Service June 10, 2020 Anesthesia Post Procedure Vital Signs Vital Signs: Temp Pulse Pulse Pulse Resp BP BP 06/10/20 17:45 36.5 C 66 18 143/75 H 06/10/20 17:35 63 16 140/73 06/10/20 17:25 75 16 136/75 06/10/20 17:16 36.1 C L 69 16 134/70 06/10/20 15:55 37.9 C H 52 L 18 165/79 H 06/10/20 15:28 36.7 C 50 L 18 164/96 H 06/10/20 07:32 36.9 C 57 L 18 174/85 H 06/09/20 23:14 37.0 C 58 L 18 154/72 H 06/09/20 22:28 68 16 Pulse Ox 06/10/20 17:45 99 06/10/20 17:35 99 06/10/20 17:25 97 06/10/20 17:16 98 06/10/20 15:55 96 06/10/20 15:28 97 06/10/20 07:32 93 06/09/20 23:14 95 06/09/20 22:28 96 Pain Intensity Right Flank: Pain Intensity: 0 Transfer of Care Handoff Completed per policy Notes Mental Status: alert / awake / arousable and participated in evaluation Patient Amnestic to Procedure: Yes Nausea / Vomiting: adequately controlled Pain: adequately controlled Airway Patency, RR, SpO2: stable & adequate BP & HR: stable & adequate Hydration State: stable & adequate Anesthetic Complications: no major complications apparent and Pt Satisfied with anesthetic care
[2020-06-10] MEDS: TAMSULOSIN HCL 0.4 MG CAP PO SCH (18:23)
[2020-06-10] MEDS: ATORVASTATIN 40 MG TAB PO SCH (18:23)
[2020-06-10] MEDS: cefTRIAXone SODIUM 2,000 MG in DEXTROSE 5% 50 ML IV SCH (18:24)
[2020-06-10] MEDS: CITALOPRAM 20 MG TAB PO SCH (18:24)
[2020-06-11] MEDS: SODIUM CHLORIDE 0.9% 1000ML 1,000 ML IV SCH (05:50)
[2020-06-11] MEDS: ATORVASTATIN 40 MG TAB PO SCH (09:00)
[2020-06-11] MEDS: TAMSULOSIN HCL 0.4 MG CAP PO SCH (09:00)
[2020-06-11] MEDS: CITALOPRAM 20 MG TAB PO SCH (09:00)
[2020-06-11] MEDS ORDERED: OLMESARTAN MEDOXOMIL 40 MG TAB PO SCH (09:00)
[2020-06-11] MEDS: INSULIN ASPART 100 UNITS/ML 3 ML PEN SC SCH ×2 (09:03→12:57)
--- NOTE | 2020-06-11 10:00 | Urology Progress Note ---
Date of Service June 11, 2020 Assessment & Plan (1) Right ureteral calculus: 60yo M admitted with intractable right flank pain and MALIKA secondary to a right ureteral calculus with associated hydronephrosis -POD #1 s/p Cystoscopy, Right Stent Placement, Right Ureteroscopy, Laser Lithotripsy, Stone Treatment with Dr. Heredia -Patient doing well today with improvement in symptoms -Remains afebrile -No new labs this AM -Plan of care reviewed with Dr. Heredia -OK for discharge from perspective -Tethered stent in place, will plan for removal prior to discharge later today -Recommend home with flomax, pyridium, and antibiotics per primary team -Will arrange outpatient follow-up with urology service -Expected clinical course reviewed, patient agreeable to plan, all questions were answered -Patient reassessed this afternoon -Continues to do well, no complaints of pain -Tethered stent removed at bedside without difficulty, patient tolerated well. -Will arrange outpatient f/u Admission and Anticipated Discharge Date Admission Date: June 09, 2020 Subjective POD #1 s/p Cystoscopy, Right Stent Placement, Right Ureteroscopy, Laser Lithotripsy, Stone Treatment with Dr. Heredia Pt examined at bedside this AM. Awake, sitting in bedside chair on arrival. He is feeling well overall. Pt denies any pain or discomfort at this time. Denies fevers or chills. Tolerating diet, no nausea or vomiting. Some hematuria and dysuria as expected. Tethered stent in place. Voiding without difficulty. Ambulating without dizziness. Denies CP/SOB. Chart review: Afebrile. No new labs this AM. On IV Ceftriaxone. Review of Systems Constitutional: as per Subjective / HPI Gastrointestinal: as per Subjective / HPI Genitourinary: + as per Subjective / HPI Physical Exam Constitutional: well developed and well nourished; no acute distress and not ill appearing Respiratory: normal respiratory effort and able to speak in complete sentences Cardiovascular: Extremities: no calf tenderness Gastrointestinal (Abdomen): Inspection/Auscultation: abdomen normal to inspection; abdomen not distended Musculoskeletal: Head/Neck/Chest: normocephalic Skin: No visible rashes or lesions Neurologic: moves all extremities and awake; not confused Psychiatric: A+Ox3, euthymic affect Results & Data ([facility]) Vital Signs (Past 12 Hours) Vital Signs Temp Pulse Pulse Pulse Resp BP Pulse Ox 06/11/20 07:27 36.5 C 56 L 18 165/80 H 94 06/11/20 04:36 36.4 C L 54 L 18 155/79 H 97 06/11/20 03:15 56 L 16 93 06/10/20 23:19 36.8 C 53 L 16 142/70 H 92 06/10/20 22:23 16 94 PG Care Time/CCT Total # of Minutes Spent Total Time Spent with Patient: Total time spent is greater than 50% in coordination of care (as documented) at patient's floor/unit and/or counseling patient: Coding Level of Care Code 96379 Subseq Hosp Care Lvl 2 Diagnoses Right ureteral calculus N20.1
--- NOTE | 2020-06-11 12:51 | Electrocardiogram Report ---
Test Reason : Blood Pressure : / mmHG Vent. Rate : 058 BPM Atrial Rate : 058 BPM P-R Int : 160 ms QRS Dur : 090 ms QT Int : 464 ms P-R-T Axes : 026 058 055 degrees QTc Int : 455 ms Sinus bradycardia Otherwise normal ECG No previous ECGs available Confirmed by Navneet Edouard ([id number]) on 06/11/2020 12:51:05 PM Referred By: REFERRED SELF Confirmed By:Francisco Edouard
--- NOTE | 2020-06-11 14:41 | Hospitalist Progress Note ---
Date of Service June 11, 2020 Assessment & Plan (1) Renal calculi: -Patient presenting from home with reports of ongoing right flank and right lower quadrant pain. This is patient's fourth ED visit since 06/03 for these complaints. Please refer to HPI for summary of imaging completed. -Was diagnosed with 4 mm right ureteral stone with associated hydronephrosis on 06/03 at [facility] [address] via CT scan -Renal ultrasound today shows ongoing mild right hydronephrosis -UA does not suggest UTI, patient is afebrile, no leukocytosis. CT ABD/pelvis yesterday could not exclude a superimposed underlying infectious process, therefore will start empiric IV ceftriaxone -IVF, pain control, continue tamsulosin that was previously started earlier in the course -Follow urine and blood cultures -Urology consult, case discussed with GERALD Mcginnis -Pain is much better and denies any other significant symptoms -Status post stent placement yesterday -Remains stable,denies any symptoms -Is going to visit removal of stent today and after that we will likely be discharged (2) MALIKA (acute kidney injury): -Creatinine 1.5 (up from baseline of 0.8) -Likely prerenal in nature due to acute illness -IVF, follow renal functions, hold olmesartan and HCTZ -Creatinine has been normalized -We will restart Benicar (3) Hypokalemia: -K+ 3.2 -Replace, follow electrolytes -K is at 3.5 today (4) COVID-19: -Tested positive for COVID-19 on 05/29 -Received monoclonal antibody bamlanivimab on 06/03 -Doing well, no oxygen requirement. No further treatment indicated at this time -No more isolation and does not have any symptoms of Covid (5) Renal lesion: - Equivocal 2.4 cm left renal lesion noted on renal US today, will need nonemergent renal protocol CT as an outpatient (6) VALENTINO on CPAP: -Continue CPAP as per home settings (7) DM type 2 (diabetes mellitus, type 2): -Hgb A1c 6.2 04/2020 -Hold oral agents and utilize NovoLog per protocol while hospitalized (8) HTN (hypertension): -BP controlled, holding olmesartan and HCTZ in the setting of MALIKA -Rate to be high this morning and Benicar has been restarted (9) DVT prophylaxis: -SCDs due to possible invasive procedure Admission and Anticipated Discharge Date Admission Date: June 09, 2020 Subjective 06/10/2020 The patient was seen and examined in medical floor His pain is much better and denies any shortness of breath though does have minimal cough No fever and/or chills 06/11/2020 The patient was seen and examined in medical floor Hemoglobin stent removal today from the right ureter and probably he will go home thereafter Denies any symptoms and his renal function has been stabilized Review of Systems Review of Systems: All systems reviewed and are unremarkable except as noted below Genitourinary: + flank pain (Right flank pain); no dysuria, no urinary hesitancy and no hematuria Physical Exam Constitutional: WD/WN, vitals as above + obese Eyes: PERRL, conjunctivae normal, anicteric sclerae ENMT: external ear and nose normal, oropharynx normal Respiratory: normal respiratory effort; no respiratory distress Auscultation: + diminished lung sounds Cardiovascular: Rate/Rhythm: regular rate and regular rhythm Vessels: normal peripheral pulses Extremities: no edema Gastrointestinal (Abdomen): Inspection/Auscultation: normal bowel sounds Percussion/Palpation: + abdomen tender (RLQ) and abdomen soft; no hepatosplenomegaly Musculoskeletal: no cyanosis or clubbing, extremities motor strength 5/5 Skin: no rashes, warm and dry Neurologic: PERRL, EOMI, accommodation nl, no face palsy, no dysarthria Psychiatric: A+Ox3, euthymic affect Genitourinary: no CVA tenderness Results & Data Results & Data ([facility]) Vital Signs (Past 12 Hours) Vital Signs Temp Pulse Pulse Pulse Resp BP Pulse Ox 06/11/20 11:47 36.7 C 48 L 18 159/89 H 97 06/11/20 07:27 36.5 C 56 L 18 165/80 H 94 06/11/20 04:36 36.4 C L 54 L 18 155/79 H 97 06/11/20 03:15 56 L 16 93 Medications Administered Current Inpatient Medications Acetaminophen (Acetaminophen 325 Mg Tab) 650 mg PO Q4H PRN PRN Reason: pain/fever Stop: 07/09/20 14:51 Atorvastatin Calcium (Atorvastatin 40 Mg Tab) 40 mg PO DAILY [facility] Stop: 07/10/20 08:59 Last Admin: 06/11/20 09:00 Dose: 40 mg Documented by: Citalopram Hydrobromide (Citalopram 20 Mg Tab) 10 mg PO DAILY SO Stop: 07/10/20 08:59 Last Admin: 06/11/20 09:00 Dose: 10 mg Documented by: Dextrose (Dextrose 50% 50 Ml Syringe) 25 - 50 ml IV UD PRN; Protocol PRN Reason: Hypoglycemia Protocol Stop: 07/09/20 14:51 Glucagon (Glucagon For Inj 1 Mg Vial) 1 mg SQ UD PRN; Protocol PRN Reason: Hypoglycemia Protocol Stop: 07/09/20 14:51 Glucose (Glucose 10 Tabs/Tube) 4 - 8 tabs PO UD PRN; Protocol PRN Reason: Hypoglycemia Protocol Stop: 07/09/20 14:51 Glucose (Glucose 40% Gel 15 Gm Tube) 15 - 30 gm PO UD PRN; Protocol PRN Reason: Hypoglycemia Protocol Stop: 07/09/20 14:51 Ceftriaxone Sodium 2,000 mg/ (Dextrose) 70 mls @ 140 mls/hr IV Q24H SO; Protocol Stop: 06/19/20 15:59 Last Infusion: 06/10/20 20:10 Dose: Infused Documented by: Sodium Chloride (Nss 1000ml) 1,000 mls @ 100 mls/hr IV .Q10H SO Stop: 07/09/20 14:51 Last Admin: 06/11/20 05:50 Dose: 100 mls/hr Documented by: Insulin Aspart (Insulin Aspart 100 Units/Ml 3 Ml Pen) 0 units SC ACHS SO Stop: 07/10/20 20:59 Last Admin: 06/11/20 12:57 Dose: 2 units Documented by: Miscellaneous (Carbohydrates For Hypoglycemia ) 15 - 30 gm PO UD PRN PRN Reason: Hypoglycemia Protocol Stop: 07/09/20 14:51 Morphine Sulfate (Morphine Sulfate 4 Mg/Ml 1 Ml Carp\Vial) 4 mg IV Q4H PRN PRN Reason: Pain Stop: 06/23/20 14:51 Olmesartan (Olmesartan Medoxomil 40 Mg Tab) 40 mg PO QAM SO Stop: 07/11/20 08:59 Last Admin: 06/11/20 09:00 Dose: 40 mg Documented by: Tamsulosin HCl (Tamsulosin Hcl 0.4 Mg Cap) 0.4 mg PO DAILY SO Stop: 07/10/20 08:59 Last Admin: 06/11/20 09:00 Dose: 0.4 mg Documented by:
--- NOTE | 2020-06-18 11:03 | Discharge Summary ---
Date of Service June 18, 2020 Admission HPI Per Admitting Provider 60-year-old male with PMH DM type II, VALENTINO on CPAP, HTN, and other problems listed below who presents to the ED for evaluation of right flank and right lower quadrant pain. Of note, patient tested positive for COVID-19 on 05/29. He received monoclonal antibody, bamlanivimab, on 06/03. He reports he has been doing well from a COVID-19 symptom standpoint. He states that he had nausea, poor appetite, diarrhea, fatigue that are all resolving. Still has a mild lingering cough. Denies shortness of breath. On 06/03, patient reports he developed right flank pain that was similar to prior kidney stones in the past. He was seen at [facility] ED and had CT scan showing (24 mm exophytic cyst noted off the midpole left kidney. A 4 mm stone is noted at the proximal 3rd of the right ureter with hydroureteronephrosis proximal to the stone. There are multiple nonobstructive subcentimeter stones in the right kidney). He continued to have right flank and right lower quadrant pain and presented to the ED again on 06/05. He then had a renal ultrasound showing (no echogenic obstructive renal calculi, hydronephrosis or perinephric fluid bilaterally. A 6 mm nonobstructing calculus is present within the inferior pole of the right kidney. A small 2 cm cyst is present within the left kidney.) Again due to ongoing symptoms, patient was seen in the ED yesterday and had repeat CT scan showing (1. 4 mm right proximal ureteral stone is not significantly changed in position. Moderate-severe hydronephrosis has increased with marked perinephric fat stranding and non-organized fluid/edema extending caudally in the retroperitoneal space to the pelvis. Associated urothelial enhancement in the right proximal ureter/renal collecting system. Superimposed infectious process is not excluded.). Urology was contacted when patient was in the ED at [facility] and they recommended discharge with outpatient follow-up. Next available appointment was on 06/23. Patient was given Percocet to take at home. He reports that it does improve his pain however he is frustrated with ongoing symptoms. He then presented to [facility] ED today for further evaluation. Patient reports having a fever of 103 closer to the time of his diagnosis of COVID-19. Reports temperature of 99 today. Appetite is improving, denies nausea, vomiting, diarrhea. No chest pain. Denies lightheadedness, dizziness, diaphoresis, syncopal events. Urinating without difficulty, denies hematuria and dysuria. In the ED today, renal ultrasound shows mild hydronephrosis. Labs show creatinine 1.5 (up from baseline of 0.8). UA does not suggest UTI, patient is afebrile without leukocytosis. He was given IVF and IV ketorolac. Admission Exam Per Admitting Provider Constitutional: WD/WN, vitals as above + obese Eyes: PERRL, conjunctivae normal, anicteric sclerae ENMT: external ear and nose normal, oropharynx normal Respiratory: normal respiratory effort; no respiratory distress Auscultation: + diminished lung sounds Cardiovascular: Rate/Rhythm: regular rate and regular rhythm Vessels: normal peripheral pulses Extremities: no edema Gastrointestinal (Abdomen): Inspection/Auscultation: normal bowel sounds Percussion/Palpation: + abdomen tender (RLQ) and abdomen soft; no hepatosplenomegaly Musculoskeletal: no cyanosis or clubbing, extremities motor strength 5/5 Skin: no rashes, warm and dry Neurologic: PERRL, EOMI, accommodation nl, no face palsy, no dysarthria Psychiatric: A+Ox3, euthymic affect Genitourinary: no CVA tenderness Principal Diagnosis Right ureteral calculus with associated hydronephrosis, hypertension,Possible UTI r, MALIKA-resolved, equivocal 2.4 cm left renal lesion needs to be followed up as an outpatient Discharge Exam Constitutional WD/WN, vitals as above + obese Eyes PERRL, conjunctivae normal, anicteric sclerae ENMT external ear and nose normal, oropharynx normal Respiratory normal respiratory effort; no respiratory distress Auscultation: + diminished lung sounds Cardiovascular Rate/Rhythm: regular rate and regular rhythm Vessels: normal peripheral pulses Extremities: no edema Gastrointestinal (Abdomen) Inspection/Auscultation: normal bowel sounds Percussion/Palpation: + abdomen tender (RLQ) and abdomen soft; no hepatosplenomegaly Musculoskeletal no cyanosis or clubbing, extremities motor strength 5/5 Skin no rashes, warm and dry Neurologic PERRL, EOMI, accommodation nl, no face palsy, no dysarthria Psychiatric A+Ox3, euthymic affect Genitourinary no CVA tenderness Discharge Data Allergies Allergy/AdvReac Type Severity Reaction Status Date / Time guaifenesin [From Mucinex] Allergy Intermediate Hives Unverified 06/09/20 10:05 Consultations 06/09/20 12:39 ED Decision to Admit Stat 06/09/20 14:52 Consult Urology Routine Procedures Performed Operation Date: 06/10/20 07:00 Actual Procedures p Cystoscopy, Right Ureteroscopy, Laser Lithotripsy, Stone Treatment(Right) - Landon eHredia MD s Right Stent Placement(Right) - Landon Heredia MD Ordered Studies 06/09/20 09:35 US renal/blad retro comp Stat 06/10/20 08:38 FL retrograde includes kub Routine Hospital Course (1) Renal calculi: -Patient presenting from home with reports of ongoing right flank and right lower quadrant pain. This is patient's fourth ED visit since 06/03 for these complaints. Please refer to HPI for summary of imaging completed. -Was diagnosed with 4 mm right ureteral stone with associated hydronephrosis on 06/03 at [facility] via CT scan -Renal ultrasound today shows ongoing mild right hydronephrosis -UA does not suggest UTI, patient is afebrile, no leukocytosis. CT ABD/pelvis yesterday could not exclude a superimposed underlying infectious process, therefore will start empiric IV ceftriaxone -IVF, pain control, continue tamsulosin that was previously started earlier in the course -Follow urine and blood cultures -Urology consult, case discussed with GERALD Mcginnis -Pain is much better and denies any other significant symptoms -Status post stent placement yesterday -Remains stable,denies any symptoms -Is going to visit removal of stent today and after that we will likely be discharged (2) MALIKA (acute kidney injury): -Creatinine 1.5 (up from baseline of 0.8) -Likely prerenal in nature due to acute illness -IVF, follow renal functions, hold olmesartan and HCTZ -Creatinine has been normalized -We will restart Benicar (3) Hypokalemia: -K+ 3.2 -Replace, follow electrolytes -K is at 3.5 today (4) COVID-19: -Tested positive for COVID-19 on 05/29 -Received monoclonal antibody bamlanivimab on 06/03 -Doing well, no oxygen requirement. No further treatment indicated at this time -No more isolation and does not have any symptoms of Covid (5) Renal lesion: - Equivocal 2.4 cm left renal lesion noted on renal US today, will need nonemergent renal protocol CT as an outpatient (6) VALENTINO on CPAP: -Continue CPAP as per home settings (7) DM type 2 (diabetes mellitus, type 2): -Hgb A1c 6.2 04/2020 -Hold oral agents and utilize NovoLog per protocol while hospitalized (8) HTN (hypertension): -BP controlled, holding olmesartan and HCTZ in the setting of MALIKA -Rate to be high this morning and Benicar has been restarted (9) DVT prophylaxis: -SCDs due to possible invasive procedure Total Time Total Time Spent Total Time Spent (In Minutes): 35 minutes Total Time Includes: Examination of the Patient, Discharge Planning, Medication Reconciliation and Communication With Other Providers Discharge Plan Discharge Items Patient Disposition: Home - Self-Care Reason For Visit: RENAL CALCULI Discharge Diagnosis: Right ureteral calculus with associated hydronephrosis, hypertension,Possible UTI r, MALIKA-resolved, equivocal 2.4 cm left renal lesion needs to be followed up as an outpatient Activity: Resume your previous activity Non-emergency contact: Primary Care Provider Call non-emergency contact if: you have any medication questions and your symptoms worsen Follow-up/Referrals: Zeinab Leavitt MD [Primary Care Provider] - (Date & Time 06/17/2020 12:00 PM Provider Zeinab Leavitt MD [facility] ) Diet: Carb Consistent or DM2 and Heart Healthy Addtl Attending Provider Instructions: Please try to drink more fluid Take your medications as advised Pending Studies at Discharge: No Stand-Alone Forms: My [employer], Smoking Cessation Medications and DC Order Prescriptions: New phenazopyridine [Pyridium] 200 mg tablet 200 mg PO Q8H PRN (Reason: pain) Qty: 10 RF: 0 Continued atorvastatin 40 mg Tablet 40 mg PO DAILY RF: 0 citalopram 10 mg Tablet 10 mg PO DAILY RF: 0 oxycodone-acetaminophen [Percocet] 5-325 mg Tablet 1 tab PO Q6H PRN (Reason: Pain) RF: 0 tamsulosin [Flomax] 0.4 mg Capsule 0.4 mg PO DAILY RF: 0 metformin 1,000 mg Tablet 1,000 mg PO BIDM RF: 0 olmesartan [Benicar] 40 mg Tablet 40 mg PO DAILY RF: 0 hydrochlorothiazide 12.5 mg Tablet 12.5 mg PO DAILY RF: 0 Discharge Orders: Discharge Order (Routine); Ordered 06/11/20 Ordered By: Mono Howard Admission Data Admit Date/Time: 06/09/20 13:04 Attending Provider: Mono Howard Admit Provider: Mono Howard Primary Care Provider: Zeinab Leavitt Other Providers: Mono Howard ; Khoa Hurt Other Interventions: Discharge Summary Assessment (RN) Last Done: 06/11/20 15:39
== END 2020-06-11 16:25 | disposition home or self-care (01) | DRG 659 ==
LOC: ED 09:19 → 3E 13:04